=== PATIENT | female | born 1995 | race Caucasian/White ===

== ENCOUNTER 2017-04-24 00:23 | Emergency (ER) | payer BC, OTHER ==
[~2017-04-24] VITALS: Ht 170.2 cm; Wt 95.3 kg
[2017-04-24 00:43] VITALS: BP 148/99
--- NOTE | 2017-04-24 00:45 | ED Upper Extremity ---
General Stated Complaint: R HAND R FINGER SWELLING Source: patient, spouse Exam Limitations: no limitations History of Present Illness Date Seen by Provider: Apr 24, 2017 Time Seen by Provider: 00:35 Initial Comments Patient has ER by private conveyance with a chief complaint that she's been wearing a ring for several months but started having some swelling tonight and could not get her ring off. She and her significant other have tried multiple attempts with shoe strings other devices to stretch the ringer to get off and she feels like she is losing sensation in her fourth digit left hand. Constitutional: No chills, No diaphoresis Respiratory: No cough, No short of breath Cardiovascular: No chest pain, No palpitations Past Gzmkghz-Bydirj-Dfoidk Hx Patient Social History Recent Foreign Travel: No Contact w/Someone Who Travel: No Physical Exam Vital Signs Capillary Refill : General Appearance: WD/WN, no apparent distress HEENT: pharynx normal Wrist: Yes normal inspection, Yes non-tender, Yes no evidence of injury, Yes normal ROM Hand: Left, swelling (fourth finger with Artie silver ring capillary refill is less than 3 seconds) Neurologic/Psychiatric: alert, oriented x 3 Additional Procedures : Progress Times one attempt using Prolene removed the ring. 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 Patient tolerated procedure okay. Departure Impression Impression: Primary Impression: Tight ring on finger Disposition: 01 HOME, SELF-CARE Condition: Improved Departure-Patient Inst. Decision time for Depature: 00:44 Referrals: NO,LOCAL PHYSICIAN (PCP) Primary Care Physician Patient Instructions: NO INSTRUCTIONS GIVEN AQUILINO ELIZABETH Apr 24, 2017 00:45
== END 2017-04-24 00:43 | disposition home or self-care (01) ==
LOC: ER 00:28
DX: S60.455A Superficial foreign body of left ring finger, initial encounter (principal); X58.XXXA Exposure to other specified factors, initial encounter
CPT/HCPCS: 99282